=== PATIENT | female | born 1970 | race Caucasian/White ===

== ENCOUNTER 2025-09-03 11:44 | Emergency (ER) | payer OTHER, SELFPAY ==
[2025-09-03 12:06] VITALS: BP 162/84; PULSE 79; TEMP 36.6; O2SAT 98; BMI 38.0
--- NOTE | 2025-09-03 12:42 | ED_ITS ---
HPI - Headache General: Chief Complaint: Headache Stated Complaint: Headache Time Seen by Provider: 09/03/25 12:19 History of Present Illness: Patient is 54-year-old female without medical history that presents with 7 days of global headache. She has photophobia. Blood pressure is quite high in triage at 160/84, and at bedside 160/101. She was unaware of her elevated blood pressure. She has been taking ibuprofen for self-care at home. She states [place] recently [place], and the lights were funny there, which she thought brought the headache on. She states she has issues with certain lights, such as [employer] will bother her and nearly cause blindness. Associated symptoms: Reports nausea; Deny chest pain, fever(s), rash or vomiting Related Data Home Medications ?Medication ?Instructions ?Recorded ?Confirmed levothyroxine 200 mcg tablet 200 mcg PO QAM 09/03/25 1 11/03/24 (Synthroid) metaxalone 800 mg tablet 800 mg PO TID PRN Pain 09/0309/03/25 Previous Rx's ?Medication ?Instructions ?Recorded propranolol 80 mg capsule,24 80 mg PO DAILY #30 caps 1 11/03/24 hr,extended release (Inderal [place]) Allergies Allergy/AdvReac Type Severity Reaction Status Date / Time Penicillins Allergy Unknown Verified 09/03/25 12:13 pistachio nut Allergy Unknown Verified 09/03/25 12:13 Review of Systems General: Reports: 10 or more systems reviewed and unremarkable except in HPI and below Const: Denies: fever(s) or chills Eyes: Reports: photophobia; Denies: change in vision or blurry vision ENMT: Denies: throat pain or mouth pain Card: Denies: chest pain or palpitations Resp: Denies: dyspnea or non-productive cough GI: Reports: nausea; Denies: abdominal pain or vomiting : Denies: flank pain or difficulty voiding Musc: Denies: neck pain or back pain Skin/Breast: Denies: rash or pruritus Neuro: Reports: headache(s); Denies: numbness in extremities, weakness in extremities or sensory changes Psych: Denies: anxiety or depression Physical Exam Const: COMMON NORMALS: no acute distress, average body habitus and patient oriented x3 HENMT: COMMON NORMALS: normocephalic and atraumatic HEAD & SCALP: normocephalic and atraumatic Lymph: LYMPHATIC: no lymphadenopathy noted Chest: COMMONS NORMALS: normal inspection of the chest and normal palpation of entire chest wall Resp: COMMON NORMALS: normal respiratory effort, No retractions and No use of accessory muscles Cardio: COMMON NORMALS: regular rate and regular rhythm RATE: regular rate RHYTHM: regular rhythm HEART SOUNDS: Murmur heart sound present (Midsystolic) GI: COMMON NORMALS: Normal to inspection, nondistended, normoactive bowel sounds present, Soft to palpation, non-tender and No hepatosplenomegaly present PALPATION: Yes Soft to palpation and Yes No hepatosplenomegaly present : COMMON NORMALS: Yes no CVA tenderness BLADDER/KIDNEY EXAM: Yes no CVA tenderness Back/Pelvis: COMMON NORMALS: no CVA tenderness Extremity: COMMON NORMALS: normal to inspection, full ROM and capillary refill normal Neuro: COMMON NORMALS: patient oriented x3 Course Vital Signs: Vital signs: Vital Signs Temperature 97.9 F 09/03/25 12:06 Pulse Rate 79 09/03/25 12:06 Blood Pressure 157/88 09/03/25 12:57 Pulse Oximetry 98 09/03/25 12:06 Oxygen Delivery Me thod Room Air 09/03/25 12:06 MDM - Headache Medical Decision Making Patient is a 54-year-old female that presents with 7 days of headache. This has been come and go, however mainly continuous, global headache, associated with photophobia. She has improvement somewhat after clonidine x 1. Given her mitral valve prolapse, mitral valve prolapse, and bigeminy, drug of choice would be a beta-abdoul, propranolol, which is indicated. Patient would prefer not to take any medication, which is understandable. I did advise her to take her blood pressure daily, and see about possibly taking her blood pressure medication, and going on a low-salt diet with information. She will also follow-up with Dr. Marquez that she is previously established with regarding any additional workup. No radiology studies performed this visit EKG Data EKG 1: Interpretation: [place], [place] is 161, QTc 423 Discharge Plan Discharge Patient Disposition: Home Clinical Impression: Hypertension Qualifiers: Hypertension type: primary hypertension Qualified Code(s): I10 - Essential (primary) hypertension Migraine Qualifiers: Migraine type: migraine (< 15 days per month) with aura Status migrainosus presence: without status migrainosus Intractability: not intractable Qualified Code(s): G43.109 - Migraine with aura, not intractable, without status migrainosus Condition: Stable Prescriptions: New propranolol [Inderal LA] 80 mg capsule,extended release 24 hr 80 mg PO DAILY Qty: 30 0RF No Action levothyroxine [Synthroid] 200 mcg tablet 200 mcg PO QAM metaxalone 800 mg tablet 800 mg PO TID PRN (Reason: Pain) Discharge Orders: Discharge ED (Routine); Ordered 09/03/25 Ordered By: Nolvia Aceves Referrals: Dirk Novak MD [Primary Care Provider, Internal Medicine] Discharge Diet: Low Salt Patient Instructions: Migraine Headache (ED), DASH Eating Plan (ED), Patient Portal & Jacquie Instructions Activity Restrictions/Additional Instructions: - Dash eating plan has been given to you. This is a Mediterranean type diet with low salt. Most of the foods that are dense in salt include: Lunch meats, soups, breads such as biscuits, pizzas, pork products such as dejesus. Most apps on your phone can show you the salt content of a product. - Take your blood pressure daily. Take a log to your doctor to show. - Keep a headache log in your notes as well -Magnesium [id number], lowest dose, 250 and 400 mg should be lowest dose [id number]. Take 1 at night. - If you take your beta-abdoul, take your blood pressure first to write it down and make sure it is greater than 130/80. Return to ED if you have worsening symptoms, fever greater than 100.4 ?F Thank you for choosing [facility] for your healthcare needs today. You have been screened and evaluated and felt safe for discharge. Health conditions do change or evolve sometimes and as such it is important that you follow up with your Primary Doctor to be re checked, 3-5 days is a general good time frame for follow up. 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
[2025-09-03 12:57] VITALS: BP 157/88
--- NOTE | 2025-09-03 13:24 | ECG_ITS ---
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 Measurements Intervals [place] Rate: 70 P: 35 TN: 161 QRS: 26 QRSD: 86 T: 29 QT: 403 QTc: 435 Interpretive Statements SINUS RHYTHM WITH FREQUENT VENTRICULAR PREMATURE COMPLEXES IN A BIGEMINAL PATTERN NONSPECIFIC T-WAVE ABNORMALITY ABNORMAL RHYTHM ECG No previous ECG available for comparison Electronically Signed On 09-03-2025 14:57:31 HYPO SPLASHER by Dandy Gayle M.D. [email or web address]
[2025-09-03 13:43] VITALS: BP 121/99; PULSE 86; O2SAT 97
[2025-09-03 14:40] VITALS: BP 125/79; PULSE 71; O2SAT 93
== END 2025-09-03 14:40 | disposition home or self-care (01) ==
PROVIDERS: Emergency Provider Physician Assistant; PCP Internal Medicine
DX: G43.109 Migraine with aura, not intractable, without status migrainosus (principal); I10 Essential (primary) hypertension
CPT/HCPCS: 93005; 99283; J9999